=== PATIENT | male | born 1980 | race Caucasian/White ===

== ENCOUNTER 2022-12-19 17:33 | Emergency (ER) | payer MEDICAID, SELFPAY ==
[2022-12-19 17:36] VITALS: BP 121/67; PULSE 90; RESP 18; TEMP 36.3; O2SAT 96
--- NOTE | 2022-12-19 17:45 | DI.CT_ITS ---
Exam(s) CT ABDOMEN PELVIS W EXAM: CT ABDOMEN PELVIS W CLINICAL HISTORY: RLQ tenderness/pain. TECHNIQUE: Imaging Protocol: Axial computed tomography images with coronal and sagittal reformatted images were created and reviewed CONTRAST MATERIAL: Intravenous: Omnipaque-350 100cc Oral: None COMPARISON: No exams were available for comparison FINDINGS: VISUALIZED LUNG BASES: No nodules nor pleural effusions evident. ABDOMEN: There is no ascites. LIVER: Liver is hypodense implying steatosis. There are no discrete focal hepatic lesions evident. No dilated intrahepatic ducts. GALLBLADDER/BILIARY: No obvious gallbladder pathology. CBD is not dilated. PANCREAS: No evidence of pancreatic mass nor dilatation of the pancreatic duct. SPLEEN: Spleen is not enlarged. No obvious intrasplenic lesions. Splenic and portal veins are paten t. ADRENALS: There are no significant adrenal masses. KIDNEYS:Tiny nonobstructive calculi in the inferior pole the right kidney. No other renal findings. No hydronephrosis. Ureters not dilated. NSAID. ABDOMINAL AORTA: Abdominal aorta is not enlarged. LYMPH NODES:There is no retroperitoneal nor paraaortic adenopathy. ABDOMINAL WALL: There is anterior abdominal wall fat containing umbilical hernia. This measures 5 cm AP x 5 cm wide by 5.3 cm cephalocaudal. This is not contain bowel loops. GI: There is no evidence of bowel obstruction, free air, nor abscess. PELVIS: GI: No evidence of appendicitis.No evidence of sigmoid diverticulitis. LYMPH NODES: There is no intrapelvic nor inguinal adenopathy. REPRODUCTIVE: Prostate not enlarged. Seminal vesicles unremarkable. URINARY BLADDER: No calculi nor obvious masses evident OSSEOUS: No fractures and no significant osseous lesions. IMPRESSION: 1. 5 x 5 cm fat only containing umbilical hernia. No bowel loops therein. No bowel obstruction. No free air. No abscess. 2. No evidence of appendicitis. 3. Tiny nonobstructive calculi in lower pole right kidney noted. RADIATION DOSE DELIVERED: 1,425.05mGy.cm Total DLP DATA REPOSITORY: All CT scans at this facility are submitted to the National Radiology Data Registry (NRDR) Dose Index Registry (DIR) with the [employer] ([employer]). RADIATION OPTIMIZATION: All CT scans at this facility use at least one of these dose optimization te chniques: automated exposure control; mA and/or kV adjustment per patient size (includes targeted exa ms where dose is matched to clinical indication); or iterative reconstruction.
--- NOTE | 2022-12-19 17:48 | ED.GENADUL_ITS ---
Discharge Plan Disposition Patient Disposition: Home Condition: Good Discharge Details Clinical Impression: Abdominal pain, Hernia, umbilical Primary Care Provider: Radha Carvajal ED Provider: Chu Gongora Garryowen Meds and New Rx's Prescriptions: No Action metformin 500 mg Tablet PO DAILY bupropion HCl 200 mg Tablet Sustained-Release 12 Hr 225 mg PO DAILY Discharge Instructions Instructions: Abdominal Pain (ED) Additional Instructions: You were seen in the ED for abdominal pain with umbilical hernia. Your hernia is reducible. Your labs and CT scan are reassuring. Please follow-up with your primary care physicians back in [place]. Consider referral to surgery to discuss whether hernia is worth repairing or not. Return to ED for any worsening pain, vomiting, fever, other concerns. Medical Decision Making Patient presents to ED from [facility] with abdominal pain and concern for strangulated hernia. Patient's umbilical hernia is actually easily reduced and does not seem tender to me. He is tender in the right lower quadrant with guarding. We will plan IV, fluids, labs, CT scan. Patient laboratory studies with a normal white count. He is mildly anemic. Chemistries with some minor electrolyte findings. Liver function is normal. Lipase just slightly elevated. Urinalysis negative for evidence of infection. CT scan with a normal appendix. There is a fat-containing hernia without evidence of incarceration or strangulation. There is questionable findings for enteritis. He is not experiencing any vomiting or diarrhea. Patient is feeling fine at this point. He will follow-up with primary care back in [place]. May need referral to surgery for evaluation of potential hernia repair. Return precautions provided. Lab Data Lab results reviewed: Yes I reviewed the patient's lab results. HPI General Mode of arrival: ambulatory . Date/Time Provider Initiated Documentation: 12/19/22 17:41 . Limitations to Documentation: no limitations . Information obtained by: patient . HPI Narrative: Patient presents to ED referred to us from [facility] for abdominal pain thought to be related to umbilical hernia. Patient reports that he has had umbilical hernia for at least 2 months. Last couple of days it has been bothering him. He denies fever, nausea vomiting, has an appetite and is passing gas. He was seen at [facility] where it was felt that his hernia was reduced but he continued to complain of pain so he is referred here for evaluation. He denies any prior surgeries. He reports that pain seems to be associated around the umbilicus. Related Data Home Medications Medication Instructions Recorded Confirmed bupropion HCl 200 mg tablet,12 hr 225 mg PO DAILY 12/19/22 12/19/22 sustained-release metformin 500 mg tablet mg PO DAILY 12/19/22 Allergies Allergy/AdvReac Type Severity Reaction Status Date / Time bee venom protein (honey bee) Allergy Verified 12/19/22 16:41 General Stated Complaint: Abd Prob MIKE: 3 Review of Systems Narrative: Per HPI PFSH All Active Problems (Updated 12/19/22 @ 19:40 by Chu Gongora MD) Abdominal pain (Acute) Hernia, umbilical (Acute) Medical History HTN (hypertension) Pre-diabetes Surgical History No significant past surgical history Social History Smoking/Tobacco Use Status: Never Smoking risk assessment performed?: Yes Alcohol Intake: never Drug use: Never Substance use type: does not use Housing: apartment Do you feel safe at home: Yes Do you feel safe in your relationship?: Yes Exam Narrative Exam Narrative: Const: Obese male in NAD. HEENT: NC/AT. Normal facial exam. Eyes: Normal conjunctiva and sclera. Neck: Supple. Trachea midline. Lungs: Normal respiratory effort. Cor: RRR. Good radial pulses. GI: Soft and ND. Reducible umbilical hernia without tenderness. RLQ tenderness with voluntary guarding. Neuro: A+O x 3. Normal speech, mentation, gait. Cranial nerves II - XII grossly intact. No gross motor or sensory deficit. Ext: No C/C/E. Skin: Warm and dry without rash. Course Vital Signs Vital signs: Vital Signs Temperature 97.3 F L 12/19/22 17:36 Pulse 90 12/19/22 17:36 Respiratory Rate 18 12/19/22 17:36 Blood Pressure 121/67 12/19/22 17:36 Pulse Oximetry 96 12/19/22 17:36 Temperature 97.3 F L 12/19/22 17:36 Temperature Source Tympanic 12/19/22 17:36 Pulse 90 12/19/22 17:36 Respiratory Rate 18 12/19/22 17:36 Blood Pressure 121/67 12/19/22 17:36 Blood Pressure Position Sitting 12/19/22 17:36 Pulse Oximetry 96 12/19/22 17:36 Oxygen Delivery Method Room Air 12/19/22 17:36 Oxygen Flow Rate 0 12/19/22 17:36 Pain Level 6 12/19/22 17:36
[2022-12-19 18:39] LABS: Abs Immature Grans 0.02 10^3/uL (0.0-0.06); Absolute Basophil Count 0.04 10^3/uL (0.0-0.2); Absolute Eosinophil Count 0.21 10^3/uL (0.0-0.7); Absolute Lymphocyte Count 2.07 10^3/uL (1.2-3.4); Absolute Monocyte Count 0.68 10^3/uL (0.1-0.8); Absolute Neutrophil Count 5.41 10^3/uL (1.2-6.7); Basophils % 0.5; Eosinophils % 2.5; HCT 39.1 % (40.0-50.0); HGB 13.2 g/dL (13.5-17.5); Immature Grans % 0.2; Lymphocytes % 24.6; MCH 29.3 pg (27.0-33.0); MCHC 33.8 % (32.0-36.0); MCV 87 fL (80-95); MPV 8.3 fL (8.0-11.0); Monocytes % 8.1; Neutrophils % 64.1; Platelet Count 394 10^3/uL (130-400); RBC 4.51 10^6/uL (4.36-5.78); RDW 12.5 % (11.8-14.1); RDW-SD 39.6 fL; WBC 8.43 10^3/uL (4.4-10.8)
[2022-12-19 18:52] LABS: ALT 32 U/L (16-63); AST 17 U/L (15-37); Albumin 3.6 g/dL (3.4-5.0); Alkaline Phosphatase 87 U/L (46-116); Anion Gap 11.2 mmol/L (3-11); BUN 11 mg/dL (7-18); Bilirubin, Total 0.5 mg/dL (0.2-1.0); CO2 25.8 mmol/L (21.0-32.0); CREATININE 0.6 mg/dL (0.70-1.30); Calcium 8.5 mg/dL (8.5-10.1); Chloride 100 mmol/L (98-107); Estimated GFR 125.15 (mL/min/1.73m2); Glucose 122 mg/dL (74-106); Lipase 102 U/L (16-77); Magnesium 1.5 mg/dL (1.8-2.4); Potassium 3.4 mmol/L (3.5-5.1); Sodium 137 mmol/L (136-145); Total Protein 7.9 g/dL (6.4-8.2)
[2022-12-19] MEDS: Omnipaque 350 MG/ML 100 ML BTL IJ (19:04)
[2022-12-19 19:21] LABS: Bilirubin Small (Negative); Blood Negative (Negative); Clarity Clear (Clear); Glucose Negative (Negative); Ketones 40 mg/dL (Negative); Leukocyte Esterase Negative (Negative); Nitrite Negative (Negative); Specific Gravity 1.025 (1.005-1.025); Urobilinogen 0.2 mg/dL (Up to 0.2); pH 5.5 (5-8)
--- NOTE | 2022-12-19 19:27 | DI.VRAD_ITS ---
PROCEDURE INFORMATION: Exam: CT Abdomen And Pelvis With Contrast Exam date and time: 12/19/2022 7:04 PM Age: 41 years old Clinical indication: Abdominal pain; Localized; Right lower quadrant (rlq); Additional info: Rlq tenderness/pain TECHNIQUE: Imaging protocol: Computed tomography of the abdomen and pelvis with contrast. Radiation optimization: All CT scans at this facility use at least one of these dose optimization techniques: automated exposure control; mA and/or kV adjustment per patient size (includes targeted exams where dose is matched to clinical indication); or iterative reconstruction. Contrast material: OMNI 350; Contrast volume: 100 ml; Contrast route: INTRAVENOUS (IV); COMPARISON: No relevant prior studies available. FINDINGS: Limited secondary to motion artifact. Liver: Hepatomegaly and diffuse fatty infiltrationNo mass. Cirrhosis noted Gallbladder and bile ducts: Normal. No calcified stones. No ductal dilation. Pancreas: Normal. No ductal dilation. Spleen: Normal. No splenomegaly. Adrenal glands: Normal. No mass. Kidneys and ureters: Faint right renal calculi No hydronephrosis. Stomach and bowel: Fluid levels and mild small bowel thickening No obstruction. Appendix: No evidence of appendicitis. Intraperitoneal space: Unremarkable. No free air. No significant fluid collection. Vasculature: Unremarkable. No abdominal aortic aneurysm. Lymph nodes: Unremarkable. No enlarged lymph nodes. Urinary bladder: Unremarkable as visualized. Reproductive: Unremarkable as visualized. Bones/joints: Unremarkable. No acute fracture. Soft tissues: Moderate periumbilical fat containing hernia IMPRESSION: Question mild enteritis No CT evidence for appendicitis Faint nonobstructing right renal calculi Dictated and Authenticated by: Graeme Stauffer MD. Ordering:OMKAR Sage MD
[2022-12-19] MEDS: Lactated Ringers 1,000 ML 1000 ML IV (19:30)
== END 2022-12-19 20:18 | disposition home or self-care (01) ==
PROVIDERS: Emergency Provider Emergency Medicine; PCP Family Medicine
DX: K42.9 Umbilical hernia without obstruction or gangrene (principal)
CPT/HCPCS: 80053; 83690; 99285; 74177; 81003; 83735; 85025; 99283; J3490